=== PATIENT | female | born 1940 | race Hispanic/Latino ===

== ENCOUNTER → 2017-11-18 | Outpatient (CLI) | payer OTHER | END | disposition home or self-care (01) | LOC: RAH 08:58 | PROVIDERS: ATTEND Internal Medicine | DX: M25.511 Pain in right shoulder (principal) | CPT/HCPCS: 73030 ==

== ENCOUNTER → 2017-12-06 | Outpatient (CLI) | payer OTHER | END | disposition home or self-care (01) | LOC: RAH 10:16 | PROVIDERS: ATTEND Internal Medicine | DX: M75.101 Unspecified rotator cuff tear or rupture of right shoulder, not specified as traumatic (principal); M19.011 Primary osteoarthritis, right shoulder | CPT/HCPCS: 73221 ==

== ENCOUNTER → 2018-07-28 | Outpatient (CLI) | payer OTHER | END | disposition home or self-care (01) | LOC: RAH 13:30 | PROVIDERS: ATTEND Internal Medicine | DX: Z12.31 Encounter for screening mammogram for malignant neoplasm of breast (principal) | CPT/HCPCS: 77067 ==

== ENCOUNTER 2019-04-22 13:15 | Emergency (ER) | payer OTHER ==
[2019-04-22 13:55] LABS: BASOPHILS % (AUTO) 1.1 % (0.0-5.0); HEMATOCRIT 36.5 % (36-48); MEAN CORPUSCULAR HEMOGLOBIN 27.8 pg (27.0-33.0); MEAN CORPUSCULAR HGB CONC 32.8 g/dL (32.0-36.0); MEAN CORPUSCULAR VOLUME 84.7 fL (79-99); MONOCYTES % (AUTO) 7.4 % (3.0-13.0); NEUTROPHILS % (AUTO) 70.5 % (40.0-77.0); PLATELET COUNT (AUTO) 254 K/uL (130-400); RED BLOOD CELL COUNT(AUTO) 4.31 MIL/uL (4.00-5.50); RED CELL DISTRIBUTION WIDTH 14.5 % (11.0-15.5)
[2019-04-22] MEDS ORDERED: SODIUM CHLORIDE 0.9% 1000ML 1,000 ML IV ONE (13:57)
[2019-04-22 14:04] LABS: POTASSIUM 3.7 mmol/L (3.5-5.1)
[2019-04-22 14:08] LABS: ALBUMIN 3.4 g/dL (3.5-5.0); BILIRUBIN,TOTAL 0.4 mg/dL (0.2-1.0)
[2019-04-22 14:16] LABS: INR 0.98 (0.85-1.15); PARTIAL THROMBOPLASTIN TIME 26.9 SEC (26.3-35.5); PROTHROMBIN TIME 10.3 SEC (9.6-11.6)
[2019-04-22] MEDS ORDERED: IPRATROPIUM/ALBUTEROL SULFATE 3 ML SOLUTION IH ONE (14:54)
== END 2019-04-22 16:48 | disposition home or self-care (01) ==
LOC: EDH 13:15
DX: I95.9 Hypotension, unspecified (principal); J20.9 Acute bronchitis, unspecified; I10 Essential (primary) hypertension; I25.10 Atherosclerotic heart disease of native coronary artery without angina pectoris; E78.5 Hyperlipidemia, unspecified; E07.9 Disorder of thyroid, unspecified; Z90.49 Acquired absence of other specified parts of digestive tract; Z95.1 Presence of aortocoronary bypass graft; Z90.710 Acquired absence of both cervix and uterus; Z98.890 Other specified postprocedural states; Z88.2 Allergy status to sulfonamides; Z88.8 Allergy status to other drugs, medicaments and biological substances
CPT/HCPCS: 36415; 71045; 80053; 82550; 84484; 85025; 85610; 85730; 87804 ×2; 93005; 94640; 96360; 96361; 99285; J7030

== ENCOUNTER → 2019-08-24 | Outpatient (CLI) | payer OTHER | END | disposition home or self-care (01) | LOC: RAH 09:31 | PROVIDERS: ATTEND Internal Medicine | DX: Z12.31 Encounter for screening mammogram for malignant neoplasm of breast (principal) | CPT/HCPCS: 77067 ==

== ENCOUNTER 2021-03-09 11:46 | Emergency (ER) | payer OTHER ==
[~2021-03-09] VITALS: Ht 162.6 cm; Wt 64.4 kg
[2021-03-09] MEDS ORDERED: MECLIZINE HCL 25 MG TABLET PO SCH (12:00)
[2021-03-09 12:06] VITALS: BP 139/52
[2021-03-09 12:43] LABS: BASOPHILS % (AUTO) 0.7 % (0.0-5.0); EOSINOPHILS % (AUTO) 0.4 % (0.0-8.0); HEMATOCRIT 35.8 % (36-48); LYMPHOCYTES % (AUTO) 12.6 % (21.0-51.0); MEAN CORPUSCULAR HEMOGLOBIN 27.3 pg (27.0-33.0); MEAN CORPUSCULAR HGB CONC 32.1 g/dL (32.0-36.0); MEAN CORPUSCULAR VOLUME 84.8 fL (79-99); NEUTROPHILS % (AUTO) 77.1 % (40.0-77.0); PLATELET COUNT (AUTO) 231 K/uL (130-400); RED BLOOD CELL COUNT(AUTO) 4.22 MIL/uL (4.00-5.50); RED CELL DISTRIBUTION WIDTH 13.8 % (11.0-15.5); WHITE BLOOD COUNT (AUTO) 12.1 K/uL (4.8-10.8)
[2021-03-09] MEDS ORDERED: 0.9%NACL 1000ML 0 ML IV ONE (12:44)
[2021-03-09 12:55] LABS: CREATININE 1.1 mg/dL (0.5-1.5); POTASSIUM 4.4 mmol/L (3.5-5.1)
[2021-03-09 12:58] LABS: APPEARANCE,URINE Cloudy (CLEAR); BILIRUBIN,URINE Negative (NEGATIVE); COLOR,URINE Yellow (YELLOW); GLUCOSE, URINE (UA) Negative (NEGATIVE); KETONES,URINE 15 mg/dL (NEGATIVE); LEUKOCYTE ESTERASE ,URINE Large (NEGATIVE); NITRATE,URINE Positive (NEGATIVE); OCCULT BLOOD,URINE Negative (NEGATIVE); PROTEIN,URINE Negative (NEGATIVE)
[2021-03-09 12:59] LABS: ALBUMIN 3.3 g/dL (3.5-5.0); BILIRUBIN,TOTAL 0.9 mg/dL (0.2-1.0); CRP QUANTITATIVE 49.3 mg/L (0.00-9.0); TOTAL PROTEIN, SERUM 7.4 g/dL (6.0-8.3)
[2021-03-09] MEDS ORDERED: 0.9%NACL 1000ML 1,000 ML IV ONE (13:00)
[2021-03-09 13:04] LABS: B-TYPE NATRIURETIC PEPTIDE 83 pg/mL (0-100)
[2021-03-09 13:30] LABS: BACTERIA,URINE Many /HPF (None Seen); RBC,URINE 0-1 /HPF (0-1); WBC,URINE TNTC /HPF (0-1)
[2021-03-09] MEDS ORDERED: CEFTRIAXONE 1G VIAL IVP ONE (13:30)
[2021-03-09] MEDS ORDERED: 0.9%NACL 1000ML 1,000 ML IV SCH (13:30)
[2021-03-09] MEDS ORDERED: CEPH500B PO (13:57)
[2021-03-09] MEDS ORDERED: MECL-226 PO (13:57)
== END 2021-03-09 14:12 | disposition home or self-care (01) ==
LOC: EDH 11:46
DX: R55 Syncope and collapse (principal); I95.1 Orthostatic hypotension; N39.0 Urinary tract infection, site not specified; I25.10 Atherosclerotic heart disease of native coronary artery without angina pectoris; I11.9 Hypertensive heart disease without heart failure; E78.5 Hyperlipidemia, unspecified; E11.9 Type 2 diabetes mellitus without complications; Z88.2 Allergy status to sulfonamides; Z95.1 Presence of aortocoronary bypass graft
CPT/HCPCS: 36415; 70450; 71045; 80053; 81001; 83880; 84484; 85025; 86140; 87077; 87088; 87186; 93005 ×2; 96374; 99285; J0696; J7030

== ENCOUNTER → 2022-03-26 | Outpatient (CLI) | payer OTHER ==
[~2022-03-26] MED LIST: CEPH500B PO; MECL-226 PO
[2022-03-26 15:35] LABS: BASOPHILS % (AUTO) 1.3 % (0.0-5.0); EOSINOPHILS % (AUTO) 0.9 % (0.0-8.0); HEMATOCRIT 31.2 % (36-48); LYMPHOCYTES % (AUTO) 20.7 % (21.0-51.0); MEAN CORPUSCULAR HEMOGLOBIN 25.5 pg (27.0-33.0); MEAN CORPUSCULAR HGB CONC 31.1 g/dL (32.0-36.0); MEAN CORPUSCULAR VOLUME 82.1 fL (79-99); PLATELET COUNT (AUTO) 306 K/uL (130-400); RED CELL DISTRIBUTION WIDTH 15.3 % (11.0-15.5); WHITE BLOOD COUNT (AUTO) 6.8 K/uL (4.8-10.8)
[2022-03-26 15:48] LABS: ALANINE AMINOTRANSFERASE 14 U/L (12-78); ALBUMIN 2.9 g/dL (3.5-5.0); ASPARTATE AMINOTRANSFERASE 16 U/L (10-37); CARBON DIOXIDE 29 mmol/L (21-32); CHLORIDE 107 mmol/L (101-111); CREATININE 1.1 mg/dL (0.5-1.5); GLOMERULAR FILTR. RATE CALC 51 mL/min (>60); GLUCOSE,RANDOM 109 mg/dL (70-105); POTASSIUM 4.3 mmol/L (3.5-5.1); SODIUM SERUM 140 mmol/L (136-145); TOTAL PROTEIN, SERUM 6.7 g/dL (6.0-8.3); UREA NITROGEN, BLOOD 13 mg/dL (7-18)
[2022-03-26 16:18] LABS: CRP QUANTITATIVE < 2.00 mg/L (0.00-9.0)
[2022-03-26 16:38] LABS: ERYTHROCYTE SEDIMENTATION RATE 24 MM/HR (0-30)
== END | disposition home or self-care (01) ==
LOC: LAB 15:03
PROVIDERS: ATTEND Internal Medicine
DX: I11.9 Hypertensive heart disease without heart failure (principal); R10.9 Unspecified abdominal pain; K57.90 Diverticulosis of intestine, part unspecified, without perforation or abscess without bleeding; E78.49 Other hyperlipidemia
CPT/HCPCS: 36415; 80053; 85025; 85651; 86140

== ENCOUNTER → 2022-03-28 | Outpatient (CLI) | payer OTHER ==
[~2022-03-28] MED LIST changes: +IOHEXOL 350 MG/ML 100ML INFUS..BTL IV ONE
== END | disposition home or self-care (01) ==
LOC: RAH 07:36
DX: R10.9 Unspecified abdominal pain (principal); K57.92 Diverticulitis of intestine, part unspecified, without perforation or abscess without bleeding; R18.8 Other ascites; Z98.84 Bariatric surgery status
CPT/HCPCS: 74177; Q9967

== ENCOUNTER → 2022-04-05 | Outpatient (CLI) | payer OTHER ==
[~2022-04-05] MED LIST changes: -IOHEXOL 350 MG/ML 100ML INFUS..BTL IV ONE
== END | disposition home or self-care (01) ==
LOC: RAH 08:51
PROVIDERS: ATTEND Internal Medicine
DX: R93.5 Abnormal findings on diagnostic imaging of other abdominal regions, including retroperitoneum (principal); R10.9 Unspecified abdominal pain; R18.8 Other ascites; Z90.49 Acquired absence of other specified parts of digestive tract
CPT/HCPCS: 76700

== ENCOUNTER 2022-04-27 13:12 | Emergency (ER) | payer OTHER ==
[~2022-04-27] VITALS: Ht 160 cm; Wt 58.1 kg
[2022-04-27 13:48] LABS: EOSINOPHILS % (AUTO) 0.6 % (0.0-8.0); HEMATOCRIT 29.7 % (36-48); LYMPHOCYTES % (AUTO) 17.3 % (21.0-51.0); MEAN CORPUSCULAR HEMOGLOBIN 24.8 pg (27.0-33.0); MEAN CORPUSCULAR HGB CONC 31.6 g/dL (32.0-36.0); MEAN CORPUSCULAR VOLUME 78.4 fL (79-99); MONOCYTES % (AUTO) 7.9 % (3.0-13.0); NEUTROPHILS % (AUTO) 72.9 % (40.0-77.0); PLATELET COUNT (AUTO) 331 K/uL (130-400); RED BLOOD CELL COUNT(AUTO) 3.79 MIL/uL (4.00-5.50); WHITE BLOOD COUNT (AUTO) 6.7 K/uL (4.8-10.8)
[2022-04-27 14:03] LABS: CREATININE 1.6 mg/dL (0.5-1.5); POTASSIUM 3.8 mmol/L (3.5-5.1)
[2022-04-27 14:07] LABS: ALBUMIN 2.7 g/dL (3.5-5.0); TOTAL PROTEIN, SERUM 6.5 g/dL (6.0-8.3)
[2022-04-27] MEDS ORDERED: MAG/ALUM/SIMETH 30 ML UDCUP PO ONE (14:30)
[2022-04-27] MEDS ORDERED: LIDOCAINE HCL 2% VISCOUS 15 ML UDCUP PO ONE (14:30)
[2022-04-27] MEDS ORDERED: FAMOTIDINE 20MG VIAL IV ONE (14:30)
[2022-04-27] MEDS ORDERED: LACTULOSE 20 GM/30 ML UDCUP PO ONE (14:30)
[2022-04-27] MEDS ORDERED: GLYCERIN ADULT SUPP.RECT RC SCH (14:30)
[2022-04-27] MEDS ORDERED: ONDANSETRON 4MG INJ IVP ONE ×2 (14:30→16:00)
[2022-04-27] MEDS ORDERED: DICYCLOMINE HCL 10 MG/5 ML ML PO ONE (14:30)
[2022-04-27 14:40] LABS: APPEARANCE,URINE CLOUDY (CLEAR); BILIRUBIN,URINE SMALL mg/dL (NEGATIVE); COLOR,URINE YELLOW (YELLOW); GLUCOSE, URINE (UA) NEGATIVE (NEGATIVE); KETONES,URINE 15 mg/dL (NEGATIVE); LEUKOCYTE ESTERASE ,URINE SMALL Leu/uL (NEGATIVE); NITRATE,URINE NEGATIVE (NEGATIVE); OCCULT BLOOD,URINE NEGATIVE (NEGATIVE); PROTEIN,URINE TRACE mg/dL (NEGATIVE)
[2022-04-27 15:24] LABS: BACTERIA,URINE Few /HPF (None Seen); RBC,URINE None Seen /HPF (0-1)
[2022-04-27] MEDS ORDERED: DICY20TA2 PO (15:29)
[2022-04-27] MEDS ORDERED: FAMO-136 PO (15:29)
[2022-04-27] MEDS ORDERED: CEFU500T67 PO (15:29)
[2022-04-27] MEDS ORDERED: CEFTRIAXONE 1G VIAL IM ONE (15:30)
[2022-04-27] MEDS ORDERED: ONDA4TAB10 PO (15:37)
[2022-04-27 20:08] VITALS: BP 113/61
== END 2022-04-27 20:09 | disposition home or self-care (01) ==
LOC: EDH 13:12
DX: K29.70 Gastritis, unspecified, without bleeding (principal); N39.0 Urinary tract infection, site not specified; E78.00 Pure hypercholesterolemia, unspecified; I10 Essential (primary) hypertension; Z88.2 Allergy status to sulfonamides; Z88.8 Allergy status to other drugs, medicaments and biological substances; Z79.899 Other long term (current) drug therapy; Z90.49 Acquired absence of other specified parts of digestive tract; Z98.890 Other specified postprocedural states
CPT/HCPCS: 99285; 74176; 96374; 96375; 84484; 80053; 85025; 87088; 81001; 36415; 96376; 96372; J3490; J0696; J2405 ×2

== ENCOUNTER → 2022-05-30 | Outpatient (CLI) | payer OTHER ==
[~2022-05-30] MED LIST changes: +AEC81 PO; +ALBUMIN (HUMAN) 25% 200 ML IV SCH; -CEPH500B PO; +ESCI20TA38 PO; +FLUT5POW4 MC; +FURO20TA4 PO; +ISOS60TA77 PO; +LEVO25CA4 PO; +LIDOCAINE HCL 1% 20 ML VIAL ONE; +LOSA50TA64 PO; -MECL-226 PO; +OMEP40CA21 PO; +ONDA4TAB10 PO; +SIMV-46 PO
[2022-05-30 14:08] LABS: APPEARANCE BODY FLUID CLEAR (CLEAR); BODY FLUID RBC 45 /cu. mm.; BODY FLUID WBC 37 /cu. mm.; COLOR,BODY FLUID YELLOW (LT YELLOW); SPECIMENTYPE,BODY FLUID ASCITES; TOTAL VOLUME,BODY FLUID 6000 mL
[2022-05-30 14:17] LABS: BF LYMPHOCYTE 21 %; BF MESOTHELIAL 70 %; BF MONOCYTE 8 %
== END | disposition home or self-care (01) ==
LOC: RAH 07:49
DX: R18.8 Other ascites (principal); R41.0 Disorientation, unspecified; I10 Essential (primary) hypertension; E03.9 Hypothyroidism, unspecified; I25.10 Atherosclerotic heart disease of native coronary artery without angina pectoris; E78.5 Hyperlipidemia, unspecified; Z79.01 Long term (current) use of anticoagulants; Z79.82 Long term (current) use of aspirin; Z98.49 Cataract extraction status, unspecified eye; Z98.890 Other specified postprocedural states; Z90.710 Acquired absence of both cervix and uterus; Z90.49 Acquired absence of other specified parts of digestive tract; Z90.89 Acquired absence of other organs; Z98.84 Bariatric surgery status; Z98.41 Cataract extraction status, right eye; Z98.42 Cataract extraction status, left eye; Z79.899 Other long term (current) drug therapy
CPT/HCPCS: 49083; 70450; 89051; 87071; 87205; P9046 ×2; C1729; 96365